=== PATIENT | male | born 1950 | race Caucasian/White ===

== ENCOUNTER → 2017-02-22 | Outpatient (CLI) | payer OTHER ==
[~2017-02-22] MED LIST: ASPI-232 PO; CLOP1TAB15 PO; DULO60CA44 PO; METO25TA3 PO; NIAC1TAB59 PO; OMEG10002 PO; SIMV40TA2 PO
--- NOTE | 2017-02-22 12:28 | DIAGNOSTIC IMAGING REPORT ---
L-SPINE FLEX/EXT BENDING MIN 6 HISTORY: 66 years-old Male LUMBAGO,LUMBAR POST LAMINSECTOMY SYNDROME chronic low back pain with history of prior surgery COMPARISON: Lumbar spine radiographs 06/07/2014 TECHNIQUE: 5 views of the lumbar spine with flexion and extension. FINDINGS: Prior laminectomy with posterior interbody my and screw fusion at L3-S1. The distal portion of the S1 pedicle screws are in close proximity to the adjacent anterosuperior endplate. Alignment is satisfactory. No change in alignment with flexion or extension. No evidence of hardware complication or loosening on these images. Mild anterior wedging of less than 20% involves the T12 vertebral body. Multilevel endplate spurring, intervertebral disc space narrowing and facet arthrosis. Moderate intervertebral disc space narrowing at L2-L3. IMPRESSION: 1. No acute fracture or subluxation. 2. Prior laminectomy with posterior interbody my and screw fusion at L3-S1. No evidence of hardware complication or change in alignment with flexion or extension. The above report was generated using voice recognition software. It may contain grammatical, syntax or spelling errors. Electronically signed by: Abiodun Navas M.D. 02/22/2017 12:27 PM Dictated Date/Time: 02/22/2017 12:24 PM
--- NOTE | 2017-02-22 12:34 | DIAGNOSTIC IMAGING REPORT ---
L HIP UNILATERAL 2 VIEWS CLINICAL HISTORY: Persistent left hip pain. COMPARISON: None FINDINGS: Alignment of left hip is anatomic. There is no fracture or osseous lesion. There is no evidence for avascular necrosis. Lumbar spine fusion hardware is partially imaged. Left hip joint space is only minimally narrowed. There is moderate osteophytosis. IMPRESSION: 1. No acute fracture. 2. Moderate osteophytosis of the left hip with minimal joint space narrowing. Electronically signed by: Manuel Abreu M.D. 02/22/2017 12:33 PM Dictated Date/Time: 02/22/2017 12:24 PM
== END | disposition home or self-care (01) ==
LOC: C.RADBC 11:58
PROVIDERS: ATTEND Physician Assistant
DX: M54.5 Low back pain (principal); M96.1 Postlaminectomy syndrome, not elsewhere classified; M25.552 Pain in left hip; M25.752 Osteophyte, left hip; Z98.890 Other specified postprocedural states

== ENCOUNTER 2019-02-25 08:29 | Inpatient (IN) ==
--- NOTE | 2019-02-10 15:33 | PAT Medication Instructions ---
Medication Instructions Date of Service February 10, 2019 Home Medications Super Beta Prostate 1 tab PO BID cholecalciferol (vitamin D3) 1,000 unit PO QAM clopidogrel [Plavix] 75 mg PO BID duloxetine 60 mg PO BID ibuprofen 200 mg PO BID iron 28 mg PO QAM methylprednisolone 4 mg PO QAM metoprolol tartrate 25 mg PO BID omega 8-zis-xcr-fish oil [Fish Oil] 1 cap PO QPM pregabalin 100 mg PO QAM saw palmetto 450 mg PO QPM simvastatin 40 mg PO HS tramadol 50 mg PO TID vitamin B complex 1 cap PO QAM ASK your surgeon for instructions ibuprofen 200 mg PO BID ASK your prescriber and surgeon clopidogrel [Plavix] 75 mg PO BID STOP taking 2 weeks before surgery Super Beta Prostate 1 tab PO BID omega 9-lut-srg-fish oil [Fish Oil] 1 cap PO QPM saw palmetto 450 mg PO QPM DO NOT take the morning of surgery cholecalciferol (vitamin D3) 1,000 unit PO QAM iron 28 mg PO QAM vitamin B complex 1 cap PO QAM Take morning of surgery With a small sip of water, OTHERWISE NOTHING TO EAT OR DRINK AFTER MIDNIGHT: duloxetine 60 mg PO BID methylprednisolone 4 mg PO QAM metoprolol tartrate 25 mg PO BID pregabalin 100 mg PO QAM tramadol 50 mg PO TID (if needed, may be taken up to four hours before surgery) Take evening before surgery duloxetine 60 mg PO BID metoprolol tartrate 25 mg PO BID saw palmetto 450 mg PO QPM simvastatin 40 mg PO HS tramadol 50 mg PO TID Other Notes If you have any questions please call us at [phone] or [phone] or [phone] or [phone]
--- NOTE | 2019-02-11 12:14 | Anesthesiology Consultation ---
Date of Service February 11, 2019 Assessment & Plan (1) Encounter for pre-operative examination: 08/16/17 lumbar fusion = MAC #3, ETT 8.0, GV I. "Atraumatic, easy." Cardiology clearance 02/13/2019: "The patient is at low risk perioperatively for planned procedure." Chart Review Chart Review: Acceptable Risk for Surgery and Patient seen in Pre Admission Testing Teaching & Discussion Instructed NPO after midnight before surgery, except medications with 15 cc of water. Medication instructions provided according to the PAT guidelines. Plavix instructions per surgeon and prescriber. History Surgery Operation Date: 02/25/19 07:45 Proposed Procedures p L1-L2 Decompression T11-L1 Fusion, L3 Hardware Removal, Spinal Cord Monitoring - Sedrick Bryan, Height/Weight Height: 5 ft 8 in Weight: 94.4 kg Allergies Allergy/AdvReac Type Severity Reaction Status Date / Time adhesive Allergy Unknown REDNESS, Verified 02/04/19 08:36 CHAKRABORTY SKIN latex Allergy Unknown CHAKRABORTY SKIN Unverified 02/04/19 08:36 Medications Home Medications Medication Instructions Recorded Confirmed Last Taken Super Beta Prostate 1 tab PO BID 02/04/19 02/04/19 Unknown cholecalciferol (vitamin D3) 1,000 unit PO QAM 02/04/19 02/04/19 Unknown [Vitamin D3] clopidogrel [Plavix] 75 mg PO BID 02/04/19 02/04/19 02/04/19 duloxetine 60 mg PO BID 02/04/19 02/04/19 02/04/19 ibuprofen 200 mg PO BID 02/04/19 02/04/19 Unknown iron 28 mg PO QAM 02/04/19 02/04/19 Unknown methylprednisolone 4 mg PO QAM 02/04/19 02/04/19 02/04/19 metoprolol tartrate 25 mg PO BID 02/04/19 02/04/19 02/04/19 omega 8-qrh-kzt-fish oil [Fish Oil] 1 cap PO QPM 02/04/19 02/04/19 02/03/19 pregabalin 100 mg PO QAM 02/04/19 02/04/19 02/04/19 saw palmetto 450 mg PO QPM 02/04/19 02/04/19 Unknown simvastatin 40 mg PO HS 02/04/19 02/04/19 02/03/19 tramadol 50 mg PO TID 02/04/19 02/04/19 02/04/19 vitamin B complex 1 cap PO QAM 02/04/19 02/04/19 Unknown Past Medical History Medical History CAD (coronary artery disease) [place] 2007, s/p PTCA x2 History of hemangioma OF BRAIN History of [place] (myocardial infarction) 2007 ...CATH / STENTS X2 HTN (hypertension) Sleep apnea CPAP Spinal stenosis Exercise / Class Metabolic Activity II 4-5 Yardwork/Stairs/Walk up hill (Denies CP or SOB with 1 FOS, does many times daily.) Past Surgical History Surgical History History of brain surgery For hemangioma, 2002. History of cardiac cath [place]...2008, STENTS X2 - [facility] History of colonoscopy History of lumbar fusion X2 History of neck surgery 2 FUSIONS, MILD LIMITATION WITH ROM History of shoulder surgery R&L Past Anesthesia History No Hx of Anesthesia Complications and No Family Hx of Anesthesia Complications History of PONV No Hx of PONV and No Hx of Motion Sickness Social History Smoking Status: Never smoker Do You Dip or Chew Tobacco: Yes (3 CANS A WEEK AVERAGE - ADVISED NPO) Hx Alcohol Use: No Hx Substance Use: No Review of Systems Pt denies any recent chest pain, shortness of breath, palpitations, cough, fever or URI. Physical Exam Vital Signs BP: 130/82 P: 67bpm SPO2: 98% RA T: 99.3 F R: 16 ENMT Mouth: + small oral opening; no dental restorations, no chipped teeth and no loose teeth Thyromental Distance: > or= 3.5 Finger Breadths (4) Mallampati Class: II Neck normal visual inspection and + limited neck extension Respiratory normal respiratory effort Auscultation: lungs clear to auscultation bilaterally Cardiovascular Rate/Rhythm: regular rate and regular rhythm Heart Sounds: no murmur Vessels: no carotid bruit Extremities: no edema Testing Laboratory Results 02/11/19 12:26 02/11/19 12:26 PT 10.3 Seconds (9.0-12.0) 02/11/19 12:26 INR 1.0 (0.9-1.1) 02/11/19 12:26 APTT 23.4 Seconds (21.0-31.0) 02/11/19 12:26 Urine Color Dark Yellow 02/11/19 Unknown Urine Appearance Clear (Clear) 02/11/19 Unknown Urine pH 5.5 (4.5-7.5) 02/11/19 Unknown Ur Specific [place] 1.016 (1.000-1.030) 02/11/19 Unknown Urine Protein Negative (Negative) 02/11/19 Unknown Urine Glucose (UA) Negative (Negative) 02/11/19 Unknown Urine Ketones Negative (Negative) 02/11/19 Unknown Urine Nitrite Negative (Negative) 02/11/19 Unknown Ur Leukocyte Esterase Negative (Negative) 02/11/19 Unknown Blood Type A Positive 02/11/19 12: Antibody Screen NEGATIVE 02/11/19 12: Electrocardiogram Date: 02/11/19 Findings: + NSR @ (61bpm) Chest X-Ray Date: 02/11/19 Findings: + NAD Mild left hemidiaphragmatic elevation with left basilar atelectasis. Echocardiogram Date: 01/01/19 EF: 55% Technically limited due to poor acoustic window. Mild LVH with normal overall LV systolic function. Normal RV size, functins and thickness. R and L atrium top normal size. Aortic root grossly normal. Mild thickening of the mitral valve with mild mitral regurgitation. Mild tricuspid regurg. Aortic valve is poorly visualized, but no significant stenosis or regurg. No significant thrombi, masses, shunts, and pericardial effusin. Stress Test Date: 08/16/17 Type: exercise Positive for ischemia.Partially fixed, partially reversible defect involving the inferior and inferolateral page of the LV, extending from the base f the heart down to the apex. The defect is medium in size and moderate intensity, and it is consistent with prior infarction in the CA distribution with mild to moderate [place]-infarct ischemia. Cardiac Catheterization Date: 08/16/17 Mild non-obstructive CAD. Tubular 15% ostial lesion in RCA. Tubular 20% proximal lesion in Cx. Tubular 30% proximal lesion in LAD. LVEF 55-60%
--- NOTE | 2019-02-11 13:03 | XRay Report ---
XR chest Pre-admission PA/Lat HISTORY: 68 years-old Male pat preoperative exam. No acute chest complaints COMPARISON: Chest radiographs 07/10/2017 TECHNIQUE: PA and lateral views of the chest FINDINGS: Cardiomediastinal and hilar silhouettes are within normal limits. Calcified plaque of the thoracic ao rtic arch. Mild left hemidiaphragmatic elevation with left basilar atelectasis. No pneumothorax, pleu ral effusion or overt pulmonary edema. Degenerative changes of the shoulders and spine. Partially elda ged fusion hardware of the lumbar spine. Fusion hardware of the lower cervical spine. IMPRESSION: No acute process. The above report was generated using voice recognition software. It may contain grammatical, syntax o r spelling errors. Electronically signed by: Abiodun Navas M.D. 02/11/2019 1:02 PM
[2019-02-11 13:14] LABS: Basophils # (auto) 0.07 K/uL (0-0.2); Basophils % (auto) 0.8 %; Eosinophils # (auto) 0.24 K/uL (0-0.5); Eosinophils % (auto) 2.6 %; Hemoglobin 13.2 g/dL (14.0-18.0); Immature Granulocytes # (auto) 0.02 K/uL (0.00-0.02); Immature Granulocytes % (auto) 0.2 %; Lymphocytes # (auto) 1.69 K/uL (1.2-3.4); Lymphocytes % (auto) 18.7 %; Mean Corpuscular Hemoglobin 33.4 pg (25-34); Mean Corpuscular Volume 101.3 fL (80-100); Mean Platelet Volume 10.6 fL (7.4-10.4); Monocytes % (auto) 8.8 %; Neutrophils # (auto) 6.24 K/uL (1.4-6.5); Neutrophils % (auto) 68.9 %; Platelet Count 249 K/uL (130-400); RDW Coefficient of Variation 14.3 % (11.5-14.5); RDW Standard Deviation 53.3 fL (36.4-46.3); Red Blood Count 3.95 M/uL (4.7-6.1); White Blood Count 9.06 K/uL (4.8-10.8)
[2019-02-11 13:19] LABS: Appearance Urine Clear (Clear); Bilirubin Urine Negative (Negative); Blood Urine Negative (Negative); Color Urine Dark Yellow; Glucose Urine UA Negative (Negative); Ketones Urine Negative (Negative); Leukocyte Esterase Urine Negative (Negative); Nitrite Urine Negative (Negative); Protein Urine Negative (Negative); Specific Gravity Urine 1.016 (1.000-1.030); Urobilinogen Urine Negative (Negative); pH Urine 5.5 (4.5-7.5)
[2019-02-11 13:26] LABS: Calcium 9.6 mg/dl (8.5-10.1); Creatinine Clr Calc Pharmacy 82.6 ml/min; Est GFR (African American) 92.7; Potassium 4.5 mmol/L (3.5-5.1)
[2019-02-11 13:30] LABS: Partial Thromboplastin Ratio 0.9; Partial Thromboplastin Time 23.4 Seconds (21.0-31.0); Prothrombin Time 10.3 Seconds (9.0-12.0)
[~2019-02-25 08:29] MED LIST changes: +ACETAMINOPHEN 500 MG TAB PO SCH; -ASPI-232 PO; +CEFAZOLIN 2000MG 2,000 MG/15 ML SYR IV SCH; -CLOP1TAB15 PO; +CeleBREX 200 MG CAP PO SCH; -DULO60CA44 PO; +GABAPENTIN 300 MG CAP PO SCH; +LR 15ML/HR IV SCH; -METO25TA3 PO; -NIAC1TAB59 PO; -OMEG10002 PO; -SIMV40TA2 PO
[2019-02-25] MEDS ORDERED: ROCURONIUM BROMIDE 10 MG/ML 5 ML VIAL ONE (08:37)
[2019-02-25] MEDS ORDERED: DEXAMETHASONE SOD INJ 4 MG/ML VIAL ONE (08:37)
[2019-02-25] MEDS ORDERED: MIDAZOLAM HCL 1 MG/ML 2ML VIAL ONE (08:37)
[2019-02-25] MEDS ORDERED: NEOSTIGMINE METHYLSULFATE 1 MG/ML 10ML VIAL ONE (08:37)
[2019-02-25] MEDS ORDERED: LIDOCAINE HCL 2% 2 ML VIAL/AMP(20MG/ML) INFIL ONE (08:37)
[2019-02-25] MEDS ORDERED: GLYCOPYRROLATE 0.2 MG/ML VIAL ONE (08:37)
[2019-02-25] MEDS ORDERED: ONDANSETRON INJ 2 MG/ML 2 ML VIAL ONE (08:37)
[2019-02-25] MEDS ORDERED: fentaNYL citrate 100 MCG/2 ML VIAL ONE (08:37)
[2019-02-25] MEDS ORDERED: PROPOFOL IV EMULSION 10 MG/ML 20 ML VIAL IV ONE (08:37)
--- NOTE | 2019-02-25 09:13 | History & Physical Bridge Note ---
Date of Service February 25, 2019 History & Physical Bridge Note I have examined the patient, reviewed the History & Physical and in the interval since the performance of the History & Physical I have noted the following changes of clinical significance: no changes noted
--- NOTE | 2019-02-25 09:14 | History & Physical Report ---
Date of Service February 25, 2019 Assessment & Plan (1) Lumbar stenosis with neurogenic claudication: Decompression L1-L2 fusion T11-L1 hardware removal L3 Present on Admission?: Yes History of Present Illness Chief Complaint: Back and bilateral leg pain Primary Care Provider: Marc Vaz DO This is a 68-year-old male who presents with chronic persistent back and bilateral leg pain. After failing extensive course of nonoperative care is here for surgical invention. Allergies Allergy/AdvReac Type Severity Reaction Status Date / Time adhesive Allergy Unknown REDNESS, Verified 02/25/19 08:53 CHAKRABORTY SKIN latex Allergy Unknown CHAKRABORTY SKIN Verified 02/25/19 08:53 Home Medications Home Medications Medication Instructions Recorded Confirmed Type Super Beta Prostate 1 tab PO BID 02/04/19 02/25/19 History cholecalciferol (vitamin D3) 1,000 unit PO QAM 02/04/19 02/25/19 History [Vitamin D3] clopidogrel [Plavix] 75 mg PO DAILY 02/04/19 02/25/19 History duloxetine 60 mg PO BID 02/04/19 02/25/19 History ibuprofen 200 mg PO BID 02/04/19 02/25/19 History iron 28 mg PO QAM 02/04/19 02/25/19 History methylprednisolone 4 mg PO QAM 02/04/19 02/25/19 History metoprolol tartrate 25 mg PO BID 02/04/19 02/25/19 History omega 9-gmw-ytl-fish oil [Fish Oil] 1 cap PO QPM 02/04/19 02/25/19 History pregabalin 50 mg PO QAM 02/04/19 02/25/19 History saw palmetto 450 mg PO QPM 02/04/19 02/25/19 History simvastatin 40 mg PO HS 02/04/19 02/25/19 History tramadol 50 mg PO TID 02/04/19 02/25/19 History vitamin B complex 1 cap PO QAM 02/04/19 02/25/19 History Past Med/Surg History Medical History CAD (coronary artery disease) [place] 2007, s/p PTCA x2 History of hemangioma OF BRAIN History of [place] (myocardial infarction) 2007 ...CATH / STENTS X2 HTN (hypertension) Sleep apnea CPAP Spinal stenosis Surgical History History of brain surgery For hemangioma, 2003. History of cardiac cath [place]...2008, STENTS X2 - [facility] History of colonoscopy History of lumbar fusion X2 History of neck surgery 2 FUSIONS, MILD LIMITATION WITH ROM History of shoulder surgery R&L Social History Preferred Language: Argentine Communication Ability: Effective Configuration Consultant Required: No Beliefs That Will Affect Care: None Current Living Situation: Spouse Other Information That Helps Us Care for You: No Feels Safe at Home: Yes Smoking Status: Never smoker Do You Dip or Chew Tobacco: Yes (3 CANS A WEEK AVERAGE - ADVISED NPO) ; Hx Alcohol Use: No Hx Substance Use: No Physical Exam Physical Exam: Patient is alert and oriented neurologically intact. Results & Data Vital Signs (Past 12 Hours) Vital Signs Temp Pulse Resp BP Pulse Ox 02/25/19 08:56 36.8 C 61 18 141/92 H 96
[2019-02-25] MEDS ORDERED: ATROPINE SULFATE 0.1 MG/ML 10ML SYR IV PRN (09:19)
[2019-02-25] MEDS ORDERED: HYDROmorphone INJ 2 MG/ML SYR/VIAL IV PRN (09:19)
[2019-02-25] MEDS ORDERED: PROMETHAZINE HCL 12.5 MG in SODIUM CHLORIDE 0.9% 50 ML IV PRN ×2 (09:19→13:18)
[2019-02-25] MEDS ORDERED: ONDANSETRON INJ 2 MG/ML 2 ML VIAL IV PRN ×2 (09:19→13:18)
[2019-02-25] MEDS ORDERED: ePHEDrine sulfate 50 MG/ML AMP IV PRN (09:19)
[2019-02-25] MEDS ORDERED: METOCLOPRAMIDE HCL INJ 5 MG/ML 2 ML VIAL IV PRN ×2 (09:19→13:18)
[2019-02-25] MEDS ORDERED: BACITRACIN INJ 50,000 UNIT VIAL ONE (09:20)
[2019-02-25] MEDS ORDERED: BUPIVACAINE/EPINEPHRINE 0.5% MPF 1:200,000 10 ML VIAL ONE (09:20)
--- NOTE | 2019-02-25 11:40 | Operative Report ---
Post Operative Report Pre & Post Diagnosis Operation Date: 02/25/19 09:35 Pre-Op Diagnosis: Lumbar spinal stenosis with neurogenic claudication Post-Op Diagnosis: Lumbar spinal stenosis with neurogenic claudication I identified the patient and participated in the time-out.: Yes Procedure Operation Date: 02/25/19 09:35 Actual Procedures #1 removal of posterior instrumentation L2-3. #2 exploration of fusion L2-3. #3 lumbar decompression with bilateral medial facetectomies foraminotomies T12- L1 L1-L2. #4 posterior spinal fusion T11-T12 T12-L1 L1-L2. #5 placement posterior segmental instrumentation T11-L3. #6 placement of locally harvested morselized autograft in the posterior lateral gutters per #7 placement infuse collagen sponge combined master graft in the posterior gutters. Surgeon Sedrick Bryan, DO Manager Radio Yola Hernandez Estimated Blood Loss 400 Findings See Below The patient is 5 foot 8 inches tall weighing over 93 kg with a BMI in excess of 31. Patient's body habitus did create increased technical difficulty requiring at least 25% increase in operative time. Specimens 400 Indications This is a 68-year-old male known to me that presents with above-mentioned diagnosis after failing extensive course of nonoperative care is here for surgical intervention. Description of Procedure Patient was met with identified informed consent obtained. Patient was then taken to the operative suite underwent an patient placed in a prone position Tavares table on top of the Vivek frame. All bony prominences well-padded eyes inspected to ensure no external pressure placed upon them. This point the thoracolumbar spine was prepped and draped in normal sterile fashion. Sharp dissection with the assistance of Bovie cautery was then performed down to and exposing the lamina and transverse processes of T11-T12 L1-L2 and instrumentation L2-3 bilaterally. Then proceeded perform a complete laminectomy of L1 partial laminectomy of T12 including bilateral medial facetectomies and foraminotomies addressing severe stenosis. Pedicle screws were then placed in T11-T12 L1-L2-L3 bilaterally with assistance of fluoroscopy and appropriate size my locked into position. The remaining lamina and transverse processes of T11 T12-L1 and L2 burred to subcortical bleeding bone. Infuse collagen sponge master graft local autograft placed in the posterior lateral gutters. 15 round JORGE LUIS drain inserted. The incision was then closed with 1 Vicryl in the fascia 2-0 Vicryl subcutaneously and 4 Monocryl for final skin closure. Steri-Strip sterile dressings placed. Patient will continue PACU stable condition. Please note Yola Hernandez was present at the entire procedure involved the patient positioning complex portions of the surgery and final skin closure. Lastly spinal cord monitoring was utilized that the procedure no changes noted. I attest to the content of the Intraoperative Record and any orders documented therein. Any exceptions are noted below.
--- NOTE | 2019-02-25 12:08 | Fluoroscopy Report ---
FL lumbar spine 2-3V HISTORY: 68 years-old Male L1-L2 DECOMPRESSION WITH T11-L1 FUSION L3 HW REMOVAL chronic low back nellie n COMPARISON: 4 spot radiographs 08/16/2017 TECHNIQUE: 4 spot fluoroscopic images of the lumbar spine were obtained utilizing 27.5 seconds fluoro scopy time FINDINGS: Posterior body and screw fusion hardware noted at what appears to be the T11-L3 levels. The hardware appears intact. Alignment appears satisfactory. Multilevel spondylitic spurring with disc space narro wing. No acute fracture or subluxation identified. IMPRESSION: Fluoroscopic assistance as above. Please see operative report for further details. ACT 112: Negative or not required by law. The above report was generated using voice recognition software. It may contain grammatical, syntax o r spelling errors. Electronically signed by: Abiodun Navas M.D. 02/25/2019 12:06 PM
[2019-02-25] MEDS: fentaNYL citrate 100 MCG/2 ML VIAL IV PRN ×3 (12:24→12:35)
--- NOTE | 2019-02-25 12:54 | Anesthesiology Progress Note ---
Date of Service February 25, 2019 Anesthesia Post Procedure Vital Signs Vital Signs: Temp Pulse Pulse Resp BP Pulse Ox 02/25/19 12:45 64 12 111/65 95 02/25/19 12:35 68 12 110/78 95 02/25/19 12:25 64 15 114/83 100 02/25/19 12:15 68 15 130/92 100 02/25/19 12:06 36 C L 98 H 20 161/101 H 98 02/25/19 08:56 36.8 C 61 18 141/92 H 96 Pain Intensity Back: Pain Intensity: 9 Notes Mental Status: alert / awake / arousable and participated in evaluation Patient Amnestic to Procedure: Yes Nausea / Vomiting: adequately controlled Pain: adequately controlled Airway Patency, RR, SpO2: stable & adequate BP & HR: stable & adequate Hydration State: stable & adequate Anesthetic Complications: no major complications apparent
[2019-02-25] MEDS ORDERED: ACETAMINOPHEN 1,000 MG/100 ML VIAL IV PRN (13:18)
[2019-02-25] MEDS ORDERED: MAGNESIUM HYDROXIDE SUSP 30 ML UDC PO PRN (13:18)
[2019-02-25] MEDS ORDERED: SOD PHOSPHATE/SOD BIPHOSPHATE ENEMA 132 ML BTL PR PRN (13:18)
[2019-02-25] MEDS ORDERED: FAMOTIDINE 20 MG TAB PO PRN (13:18)
[2019-02-25] MEDS ORDERED: ACETAMINOPHEN 500 MG TAB PO PRN (13:18)
[2019-02-25] MEDS ORDERED: DO NOT ADMINISTER FLU VACCINE PRN (13:18)
[2019-02-25] MEDS ORDERED: LORazepam 0.5 MG TAB PO PRN (13:18)
[2019-02-25] MEDS ORDERED: DO NOT ADMINISTER PNEUMOCOCCAL VACCINE PRN (13:18)
[2019-02-25] MEDS ORDERED: ALUMINUM/MAGNESIUM SUSP 30 ML UDC PO PRN (13:18)
[2019-02-25] MEDS ORDERED: LORazepam 0.5 MG/1 ML VIAL IV PRN (13:18)
[2019-02-25] MEDS ORDERED: bisacodyL 10 MG SUPP PR PRN (13:18)
[2019-02-25] MEDS ORDERED: ONDANSETRON 4 MG OD TAB PO PRN (13:18)
[2019-02-25] MEDS ORDERED: HYDROmorphone INJ 1 MG/ML SYRINGE IV PRN (13:18)
[2019-02-25] MEDS ORDERED: NALOXONE HCL 0.4 MG/1 ML VIAL/CARP IV PRN (13:18)
[2019-02-25] MEDS ORDERED: HYDROmorphone INJ 0.5 MG/0.5 ML SYR IV PRN (13:18)
[2019-02-25] MEDS: LACTATED RINGER'S 1,000 ML IV SCH ×2 (13:31→17:47)
[2019-02-25] MEDS: OXYCODONE HCL IR 5 MG TAB (IMMEDIATE RELEASE) PO PRN ×2 (13:31→22:42)
[2019-02-25] MEDS: KETOROLAC TROMETHAMINE 15 MG/ML VIAL IV SCH ×2 (13:46→19:45)
--- NOTE | 2019-02-25 14:55 | Hospitalist Consultation ---
Date of Consultation February 25, 2019 Assessment & Plan (1) Lumbar stenosis with neurogenic claudication: * POD #0 s/p removal of posterior instrumentation L2-3, exploration of fusion L2-3, 3 lumbar decompression with bilateral medial facetectomies foraminotomies T12-L1 L1-L2, 4 posterior spinal fusion T11-T12 T12-L1 L1-L2, and placement of instrumentation T11-L3 * Pre-op h/h 13.2/40.0. EBL 400mL * Monitor CBC * PT/OT/ pain management/bowel regimen/DVT prophylaxis per primary team (2) CAD (coronary atherosclerotic disease): * [place] 2007, stent x2 * had abnormal stress test and subsequent cardiac cath in 2018 with nonobstructive CAD * Pre-op ECHO 01/01/19 with mild LVH, normal LV systolic function, EF 55%. Mild MR, TR, no wma * Continue statin, metoprolol, and recommend restarting Plavix when determined safe by Ortho Spine Surgeon (3) Macrocytosis: * Patient takes iron supplementation for chronic anemia, with pre-op h/h 13.2/40 as above * However, MCV 101.3 on pre-op labs --> patient denies alcohol use * Will obtain folate and B12 levels -- if wnl, r/o underlying myelodysplastic disorder (4) BPH (benign prostatic hyperplasia): * Patient takes saw palmetto as outpatient, but on hold prior to surgery * Will need to monitor for urinary retention once holm removed (5) History of [place] (myocardial infarction): * In 2007-- treated with stent x2 in [place] * Continue statin, metoprolol, and recommend restarting Plavix when determined safe by Ortho Spine Surgeon (6) Anxiety disorder: * Continue home cymbalta 60mg BID (7) History of PTCA: * 2007, As above (8) Hyperlipidemia: * Stable -- last lipid profile in the last six months, no record in our system * Continue home simvastatin 40mg (9) Hypertension: * Bp stable 114/78 * Not on any DAVE/ARB * continue metoprolol tartrate 25mg po bid * Continue to monitor (10) Sleep apnea: * pt did not bring home CPAP, unable to obtain at this time * Ordered for RT to set up our unit while inpatient (11) Hemangioma: * Found incidentally on imaging of neck in 2002 prior to cervical spine fusion in [place] -- surgery at the same * Stable (12) History of lumbar spinal fusion: * As above * h/o spinal surgeries x4, most recent 2018 (13) DVT prophylaxis: * SCDs as per primary team Dispo: from home, PT/OT per primary with likely hospital stay 1-2 nights Thank you for allowing the medicine team to participate in the care of Mr. Mayi house. Medicine will follow along. Supervising Physician Co-Signing Physician Notes PA Supervision Note: I personally saw and examined the patient. I verified all nguyen points and agree with GOYO Prieto with the following exceptions and/or additions: Pt seen post-op, doing well, denies chest pain or SOB, is weaning off O2. No nausea and is eating. Holm in place VSS NAD, AAOx3 Anicteric sclerae RRR no mgr CTAB no wcr Abd +BS soft NT ND Ext no edema or calf tenderness -Holm in place 68 yo male with history as above here for lumbar spine surgery Doing well -restart Plavix when safe from Surgical standpoint -continue metoprolol and watch BPs History of Present Illness Reason for Consultation: Medical Management Requesting Physician: Dr Bryan Attending Physician: Sedrick Bryan, History of Present Illness 68 white male with PMH significant for CAD (Hx [place] s/p stent x2), HTN, Sleep Apnea, BPH, OA, hemangioma, anxiety presented for L1-L2 decompression with T11- L3 fusion, L2-[address] Bryan. Patient evaluated this afternoon with at bedside. States he does not have much pain following procedure with pain medications. Patient had previous back surgery last year, and states patient looks much better today post operatively than he did last year after similar procedure. States his appetite it good. No flatus or BM. Feels generally well. States he does have a history of BPH and takes mak palmetto as an outpatient with great success, although he had held that prior to procedure. Does not take any flomax or proscar. Did not have issues with urinary retention following previous surgeries. Allergies Allergy/AdvReac Type Severity Reaction Status Date / Time adhesive Allergy Unknown REDNESS, Verified 02/25/19 08:53 CHAKRABORTY SKIN latex Allergy Unknown CHAKRABORTY SKIN Verified 02/25/19 08:53 Home Medications Home Medications Medication Instructions Recorded Confirmed Type Super Beta Prostate 1 tab PO BID 02/04/19 02/25/19 History cholecalciferol (vitamin D3) 1,000 unit PO QAM 02/04/19 02/25/19 History [Vitamin D3] clopidogrel [Plavix] 75 mg PO DAILY 02/04/19 02/25/19 History duloxetine 60 mg PO BID 02/04/19 02/25/19 History ibuprofen 200 mg PO BID 02/04/19 02/25/19 History iron 28 mg PO QAM 02/04/19 02/25/19 History methylprednisolone 4 mg PO QAM 02/04/19 02/25/19 History metoprolol tartrate 25 mg PO BID 02/04/19 02/25/19 History omega 5-skw-ooy-fish oil [Fish Oil] 1 cap PO QPM 02/04/19 02/25/19 History pregabalin 50 mg PO QAM 02/04/19 02/25/19 History saw palmetto 450 mg PO QPM 02/04/19 02/25/19 History simvastatin 40 mg PO HS 02/04/19 02/25/19 History tramadol 50 mg PO TID 02/04/19 02/25/19 History vitamin B complex 1 cap PO QAM 02/04/19 02/25/19 History Patient History Medical History (Updated 02/25/19 @ 17:24 by Briseida Prieto PA-C) CAD (coronary artery disease) [place] 2007, s/p PTCA x2 History of hemangioma OF BRAIN History of [place] (myocardial infarction) 2007 ...CATH / STENTS X2 HTN (hypertension) Sleep apnea CPAP Spinal stenosis Surgical History (Updated 02/25/19 @ 17:30 by Briseida Prieto PA-C) History of brain surgery For hemangioma, 2002. History of cardiac cath [place]...2008, STENTS X2 -- [place] History of colonoscopy History of lumbar fusion X2 History of neck surgery 2 FUSIONS, MILD LIMITATION WITH ROM History of shoulder surgery R&L Family History Other Family history non-contributory Social History Preferred Language: Iraqi Communication Ability: Effective Quality Worker Required: No Beliefs That Will Affect Care: None Current Living Situation: Spouse Other Information That Helps Us Care for You: No Feels Safe at Home: Yes Smoking Status: Never smoker Do You Dip or Chew Tobacco: Yes (3 CANS A WEEK AVERAGE - ADVISED NPO) ; Hx Alcohol Use: No Hx Substance Use: No Review of Systems Constitutional: no fever and no chills Eyes: no diplopia and no eye pain Ear, Nose, Mouth, Throat: no ear pain and no dysphagia Respiratory: no cough and no dyspnea Cardiovascular: no chest pain, no palpitations and no edema Gastrointestinal: no abdominal pain, no nausea, no vomiting and no constipation Genitourinary: no dysuria and no hematuria Musculoskeletal: + back pain (prior to surgery) Integumentary: no rash and no lesions Neurologic: + tingling (prior to procedure); no numbness Psychiatric: + anxiety; no depression Endocrine: no fatigue and no cold intolerance Hematologic / Lymphatic: no easy bleeding and no coagulopathy Allergy / Immunological: no cough and no dyspnea Physical Exam Constitutional: WD/WN, vitals as above no acute distress Eyes: PERRL, conjunctivae normal, anicteric sclerae ENMT: external ear and nose normal, oropharynx normal Neck: trachea midline, no thyromegaly Respiratory: normal respiratory effort, lungs clear to auscultation Cardiovascular: RRR, no murmur, no edema Gastrointestinal (Abdomen): normal bowel sounds, soft, nontender, no hepatosplenomegaly Musculoskeletal: Head/Neck/Chest: normocephalic and head atraumatic JORGE LUIS drain to lumbar spine dressing c/d/i NVI 2+ pt, dp pulses bilateral Skin: no rashes, warm and dry Neurologic: deep tendon reflexes 2+ bilaterally, moves all extremities and awake Speech / Cognition: normal speech Psychiatric: A+Ox3, euthymic affect Genitourinary: holm catheter present -- draining clear/yellow urine Results & Data Vital Signs (Past 12 Hours) Vital Signs Temp Pulse Pulse Resp BP Pulse Ox 02/25/19 14:05 70 16 114/78 98 02/25/19 13:30 88 16 100/74 98 02/25/19 13:05 36.8 C 74 15 103/68 97 02/25/19 12:55 36.6 C 69 12 119/82 96 02/25/19 12:45 64 12 111/65 95 02/25/19 12:35 68 12 110/78 95 02/25/19 12:25 64 15 114/83 100 02/25/19 12:15 68 15 130/92 100 02/25/19 12:06 36 C L 98 H 20 161/101 H 98 02/25/19 08:56 36.8 C 61 18 141/92 H 96 Laboratory Results 02/25/19 Range/Units 08:50 Blood Type A Positive Antibody Screen NEGATIVE Crossmatch See Detail PG Care Time/CCT Total # of Minutes Spent Total Time Spent with Patient: Total time spent is greater than 50% in coordination of care (as documented) at patient's floor/unit and/or counseling patient:
[2019-02-25] MEDS: CEFAZOLIN 2000MG 2,000 MG/15 ML SYR IV SCH (18:49)
[2019-02-25] MEDS: SIMVASTATIN 40 MG TAB PO SCH (19:51)
[2019-02-25] MEDS: DOCUSATE SODIUM/SENNA 50/8.6MG TAB PO SCH (19:51)
[2019-02-25] MEDS: DULOXETINE HCL 60 MG CAP PO SCH (19:52)
[2019-02-25] MEDS: METOPROLOL TARTRATE 25 MG TAB PO SCH (19:52)
[2019-02-25] MEDS ORDERED: SUPER BETA PROSTATE PO SCH (21:00)
[2019-02-25] MEDS ORDERED: SAW PALMETTO 450 MG PO SCH (21:00)
[2019-02-26] MEDS: LACTATED RINGER'S 1,000 ML IV SCH ×2 (00:04→06:04)
[2019-02-26] MEDS: KETOROLAC TROMETHAMINE 15 MG/ML VIAL IV SCH ×2 (02:04→08:01)
[2019-02-26] MEDS: CEFAZOLIN 2000MG 2,000 MG/15 ML SYR IV SCH (02:04)
[2019-02-26] MEDS: POLYETHYLENE (MIRALAX) 17 GM PACK PO SCH ×4 (06:04→23:57)
[2019-02-26 06:35] LABS: Basophils # (auto) 0.01 K/uL (0-0.2); Basophils % (auto) 0.1 %; Eosinophils # (auto) 0.03 K/uL (0-0.5); Eosinophils % (auto) 0.2 %; Hematocrit (blood only) 29.6 % (42-52); Hemoglobin 10.1 g/dL (14.0-18.0); Immature Granulocytes # (auto) 0.05 K/uL (0.00-0.02); Immature Granulocytes % (auto) 0.4 %; Lymphocytes # (auto) 1.69 K/uL (1.2-3.4); Lymphocytes % (auto) 13.4 %; Mean Corpuscular Hemoglobin 34.4 pg (25-34); Mean Corpuscular Hgb Conc 34.1 g/dL (32-36); Mean Corpuscular Volume 100.7 fL (80-100); Mean Platelet Volume 10.3 fL (7.4-10.4); Monocytes # (auto) 1.22 K/uL (0.11-0.59); Monocytes % (auto) 9.7 %; Neutrophils # (auto) 9.58 K/uL (1.4-6.5); Neutrophils % (auto) 76.2 %; Platelet Count 205 K/uL (130-400); RDW Coefficient of Variation 14.8 % (11.5-14.5); RDW Standard Deviation 53.6 fL (36.4-46.3); Red Blood Count 2.94 M/uL (4.7-6.1); White Blood Count 12.58 K/uL (4.8-10.8)
[2019-02-26 07:04] LABS: Calcium 8.2 mg/dl (8.5-10.1); Creatinine Clr Calc Pharmacy 92.8 ml/min; Est GFR (African American) 104.2; Est GFR (Non-African American) 89.9; Potassium 4.4 mmol/L (3.5-5.1)
[2019-02-26 07:57] LABS: Folate (Folic Acid) 16.31 ng/ml (>5.38)
[2019-02-26] MEDS: CHOLECALCIFEROL 1,000 UNITS TAB PO SCH (07:57)
[2019-02-26] MEDS: methylPREDNISolone 4 MG TAB PO SCH (07:57)
[2019-02-26] MEDS: VITAMIN B COMPLEX TAB PO SCH (07:57)
[2019-02-26] MEDS: METOPROLOL TARTRATE 25 MG TAB PO SCH ×2 (07:58→20:29)
[2019-02-26] MEDS: FERROUS SULFATE 325 MG TAB PO SCH (07:58)
[2019-02-26] MEDS: DULOXETINE HCL 60 MG CAP PO SCH ×2 (07:58→20:29)
[2019-02-26] MEDS: PREGABALIN 50 MG CAP PO SCH (08:01)
--- NOTE | 2019-02-26 08:53 | Orthopedic Progress Note ---
Date of Service February 26, 2019 Assessment & Plan (1) Lumbar stenosis with neurogenic claudication: Patient will start physical therapy today. Maintain JORGE LUIS drain and dressing. DVT prophylaxis in the form teds and SCDs. Continue with pain control. Anticipate discharge home roughly 48 hours from now. Supervising Physician Co-Signing Physician Notes Dr. Sedrick Bryan Subjective Patient is postoperative day 1 thoracolumbar decompression fusion. He is doing well. He is up eating breakfast. No issues overnight. Denies regular leg pain. Pain is controlled otherwise. JORGE LUIS drain output is 200+ cc in the past shift. H&H are 10.1 and 29.6 respectively. Review of Systems Review of Systems: All systems reviewed & are unremarkable except as noted in HPI & below Physical Exam Physical Exam: Sitting in chair. Is alert and oriented x3. Neurovascular intact bilateral lower extremities. Strength is intact bilateral lower extremities. Lumbar dressing is clean dry and intact. Calves are soft nontender bilaterally. Results & Data Vital Signs (Past 12 Hours) Vital Signs Temp Pulse Resp BP Pulse Ox 02/26/19 07:58 36.6 C 73 16 131/77 95 02/26/19 03:52 36.4 C L 80 18 120/75 97 02/25/19 23:15 36.4 C L 70 17 120/73 96
--- NOTE | 2019-02-26 11:49 | Hospitalist Progress Note ---
Date of Service February 26, 2019 Assessment & Plan (1) Lumbar stenosis with neurogenic claudication: * POD #1 s/p removal of posterior instrumentation L2-3, exploration of fusion L2-3, 3 lumbar decompression with bilateral medial facetectomies foraminotomies T12-L1 L1-L2, 4 posterior spinal fusion T11-T12 T12-L1 L1-L2, and placement of instrumentation T11-L3 * Pre-op h/h 13.2/40.0. EBL 400mL. Drain output 580cc. Continue to monitor * H/H 10.1/29.6 -- likely acute blood loss and dilutional secondary to IVF * PT/OT/ pain management/bowel regimen/DVT prophylaxis per primary team (2) Acute blood loss anemia: * As above (3) CAD (coronary atherosclerotic disease): * [place] 2007, stent x2 * had abnormal stress test and subsequent cardiac cath in 2018 with nonobstructive CAD * Pre-op ECHO 01/01/19 with mild LVH, normal LV systolic function, EF 55%. Mild MR, TR, no wma * Continue statin, metoprolol, and recommend restarting Plavix when determined safe by Ortho Spine Surgeon (4) Macrocytosis: * Patient takes iron supplementation for chronic anemia, with pre-op h/h 13.2/40 as above * However, MCV 101.3 on pre-op labs --> patient denies heavy alcohol use -- occasional drink at the holidays, 1-2x/year * B12 elevated, folate wnl, TSH 0.575 -- rec follow up with PCP/hematology as outpatient (5) BPH (benign prostatic hyperplasia): * Patient takes saw palmcristopher as outpatient, but on hold prior to surgery * Now that holm removed, will need to monitor for urinary retention (6) History of [place] (myocardial infarction): * In 2007-- treated with stent x2 in [place] * Continue statin, metoprolol, and recommend restarting Plavix when determined safe by Ortho Spine Surgeon (7) Anxiety disorder: * Continue home cymbalta 60mg BID (8) History of PTCA: * 2007, As above (9) Hyperlipidemia: * Stable -- last lipid profile in the last six months, no record in our system * Continue home simvastatin 40mg (10) Hypertension: * Bp stable 115/75 * Not on any DAVE/ARB * continue metoprolol tartrate 25mg po bid * Continue to monitor (11) Sleep apnea: * pt did not bring home CPAP, unable to obtain at this time * Ordered for RT to set up our unit while inpatient (12) Hemangioma: * Found incidentally on imaging of neck in 2002 prior to cervical spine fusion in [place] -- surgery at the same * Stable (13) History of lumbar spinal fusion: * As above * h/o spinal surgeries x4, most recent 2018 (14) DVT prophylaxis: * SCDs as per primary team Dispo: from home, PT/OT. Poss discharge in next 48 hours per primary team Thank you for allowing the medicine team to participate in the care of Mr. Sarmiento. Medicine will follow along. Supervising Physician Co-Signing Physician Notes PA Supervision Note: I did not personally see or examine the patient today, but I verified all nguyen points of GOYO Prieto's assessment and plan with the following exceptions/additions: None Subjective Patient doing well. Lower back discomfort, tolerable with pain medications. Patient states he worked with physical therapy this morning and was able to ambulate without too much difficulty. Denies dysphagia or sore throat today. Tolerating diet without difficulty. Denies numbness/paresthesias. Passing gas but no BM yet. States Holm removed approximately 11am, thirty minutes to my arrival, but has not urinated as of yet. Patient does not feel that he has to urinate at this time. Review of Systems Review of Systems: All systems reviewed & are unremarkable except as noted in HPI & below Constitutional: no fever and no chills Eyes: no diplopia and no eye pain Ear, Nose, Mouth, Throat: no sore throat and no dysphagia Respiratory: no cough and no dyspnea Cardiovascular: no chest pain and no palpitations Gastrointestinal: no abdominal pain, no nausea and no vomiting Integumentary: no rash and no lesions Neurologic: no numbness and no paresthesia Physical Exam Constitutional: WD/WN, vitals as above no acute distress Eyes: PERRL, conjunctivae normal, anicteric sclerae Neck: trachea midline, no thyromegaly Respiratory: normal respiratory effort, lungs clear to auscultation Cardiovascular: RRR, no murmur, no edema Gastrointestinal (Abdomen): normal bowel sounds, soft, nontender, no hepatosplenomegaly Musculoskeletal: Head/Neck/Chest: normocephalic and head atraumatic Skin: no rashes, warm and dry JORGE LUIS drain in place with sanguinous drainage. Site c/d/i Neurologic: deep tendon reflexes 2+ bilaterally, moves all extremities and awake Speech / Cognition: normal speech Psychiatric: A+Ox3, euthymic affect Results & Data Vital Signs (Past 12 Hours) Vital Signs Temp Pulse Resp BP Pulse Ox 02/26/19 11:43 36.6 C 73 16 115/75 95 02/26/19 07:58 36.6 C 73 16 131/77 95 02/26/19 03:52 36.4 C L 80 18 120/75 97 Laboratory Results 02/26/19 02/26/19 02/26/19 Range/Units 05:44 05:44 05:44 WBC (4.8-10.8) K/uL RBC (4.7-6.1) M/uL Hgb (14.0-18.0) g/dL Hct (42-52) % MCV (80-100) fL MCH (25-34) pg MCHC (32-36) g/dL RDW Std Deviation (36.4-46.3) fL RDW Coeff of Alexandra (11.5-14.5) % Plt Count (130-400) K/uL MPV (7.4-10.4) fL Immature Gran % (Auto) % Neut % (Auto) % Lymph % (Auto) % Frio % (Auto) % Eos % (Auto) % Baso % (Auto) % Immature Gran # (Auto) (0.00-0.02) K/uL Neut # (Auto) (1.4-6.5) K/uL Lymph # (Auto) (1.2-3.4) K/uL Frio # (Auto) (0.11-0.59) K/uL Eos # (Auto) (0-0.5) K/uL Baso # (Auto) (0-0.2) K/uL Sodium 140 (136-145) mmol/L Potassium 4.4 (3.5-5.1) mmol/L Chloride 109 H (98-107) mmol/L Carbon Dioxide 32 (21-32) mmol/L Anion Gap -1.0 L (3-11) BUN 11 (7-18) mg/dl Creatinine 0.87 (0.6-1.4) mg/dl Est Cr Clr Drug Dosing 92.8 ml/min Est GFR ( Amer) 104.2 Est GFR (Non-Af Amer) 89.9 BUN/Creatinine Ratio 13.0 (10-20) Glucose 107 H (70-99) mg/dl Calcium 8.2 L (8.5-10.1) mg/dl Vitamin B12 1079 H (211-911) pg/ml Folate 16.31 (>5.38) ng/ml TSH 0.575 (0.300-4.500) uIu/ml 02/26/19 Range/Units 05:44 WBC 12.58 H (4.8-10.8) K/uL RBC 2.94 L (4.7-6.1) M/uL Hgb 10.1 L (14.0-18.0) g/dL Hct 29.6 L (42-52) % MCV 100.7 H (80-100) fL MCH 34.4 H (25-34) pg MCHC 34.1 (32-36) g/dL RDW Std Deviation 53.6 H (36.4-46.3) fL RDW Coeff of Alexandra 14.8 H (11.5-14.5) % Plt Count 205 (130-400) K/uL MPV 10.3 (7.4-10.4) fL Immature Gran % (Auto) 0.4 % Neut % (Auto) 76.2 % Lymph % (Auto) 13.4 % Frio % (Auto) 9.7 % Eos % (Auto) 0.2 % Baso % (Auto) 0.1 % Immature Gran # (Auto) 0.05 H (0.00-0.02) K/uL Neut # (Auto) 9.58 H (1.4-6.5) K/uL Lymph # (Auto) 1.69 (1.2-3.4) K/uL Frio # (Auto) 1.22 H (0.11-0.59) K/uL Eos # (Auto) 0.03 (0-0.5) K/uL Baso # (Auto) 0.01 (0-0.2) K/uL Sodium (136-145) mmol/L Potassium (3.5-5.1) mmol/L Chloride (98-107) mmol/L Carbon Dioxide (21-32) mmol/L Anion Gap (3-11) BUN (7-18) mg/dl Creatinine (0.6-1.4) mg/dl Est Cr Clr Drug Dosing ml/min Est GFR ( Amer) Est GFR (Non-Af Amer) BUN/Creatinine Ratio (10-20) Glucose (70-99) mg/dl Calcium (8.5-10.1) mg/dl Vitamin B12 (211-911) pg/ml Folate (>5.38) ng/ml TSH (0.300-4.500) uIu/ml PG Care Time/CCT Total # of Minutes Spent Total Time Spent with Patient: Total time spent is greater than 50% in coordination of care (as documented) at patient's floor/unit and/or counseling patient:
[2019-02-26] MEDS: OXYCODONE HCL IR 5 MG TAB (IMMEDIATE RELEASE) PO PRN ×2 (17:39→23:59)
[2019-02-26] MEDS: DOCUSATE SODIUM/SENNA 50/8.6MG TAB PO SCH (20:29)
[2019-02-26] MEDS: SIMVASTATIN 40 MG TAB PO SCH (20:30)
[2019-02-27] MEDS: POLYETHYLENE (MIRALAX) 17 GM PACK PO SCH ×3 (06:30→17:46)
[2019-02-27] MEDS: OXYCODONE HCL IR 5 MG TAB (IMMEDIATE RELEASE) PO PRN ×2 (06:37→11:07)
[2019-02-27 07:10] LABS: Hematocrit (blood only) 32.4 % (42-52); Hemoglobin 10.9 g/dL (14.0-18.0); Mean Corpuscular Hemoglobin 34.2 pg (25-34); Mean Corpuscular Hgb Conc 33.6 g/dL (32-36); Mean Corpuscular Volume 101.6 fL (80-100); Mean Platelet Volume 10.1 fL (7.4-10.4); Nucleated RBC # (auto) 0.03 K/uL (0-0); Nucleated RBC % (auto) 0.2 %; Platelet Count 226 K/uL (130-400); RDW Coefficient of Variation 14.7 % (11.5-14.5); RDW Standard Deviation 53.9 fL (36.4-46.3); Red Blood Count 3.19 M/uL (4.7-6.1); White Blood Count 13.27 K/uL (4.8-10.8)
[2019-02-27 07:44] LABS: BUN Creatinine Ratio 14.5 (10-20); Calcium 8.6 mg/dl (8.5-10.1); Creatinine Clr Calc Pharmacy 88.7 ml/min; Est GFR (African American) 101.4; Est GFR (Non-African American) 87.5; Potassium 3.7 mmol/L (3.5-5.1)
[2019-02-27] MEDS: VITAMIN B COMPLEX TAB PO SCH (07:59)
[2019-02-27] MEDS: PREGABALIN 50 MG CAP PO SCH (07:59)
[2019-02-27] MEDS: TRAMADOL HCL 50 MG TABLET PO PRN ×3 (07:59→21:53)
[2019-02-27] MEDS: CHOLECALCIFEROL 1,000 UNITS TAB PO SCH (07:59)
[2019-02-27] MEDS: methylPREDNISolone 4 MG TAB PO SCH (08:00)
[2019-02-27] MEDS: DULOXETINE HCL 60 MG CAP PO SCH ×2 (08:00→21:53)
[2019-02-27] MEDS: METOPROLOL TARTRATE 25 MG TAB PO SCH ×2 (08:00→21:53)
[2019-02-27] MEDS: FERROUS SULFATE 325 MG TAB PO SCH (08:00)
--- NOTE | 2019-02-27 11:00 | Orthopedic Progress Note ---
Date of Service February 27, 2019 Assessment & Plan (1) Neurogenic claudication due to lumbar spinal stenosis: At this time continue physical therapy advance his bowel regiment monitor his JORGE LUIS output and hopefully discharge home tomorrow. Present on Admission?: Yes Subjective Patient complaining mostly of back pain today. He feels his leg symptoms are improved. Physical Exam Physical Exam: Patient is in the chair at the bedside. Is good strength testing. Results & Data Vital Signs (Past 12 Hours) Vital Signs Temp Pulse Resp BP BP Pulse Ox 02/27/19 06:33 36.7 C 89 18 125/71 96 02/26/19 23:20 37.4 C 82 17 126/77 93
--- NOTE | 2019-02-27 17:38 | Hospitalist Progress Note ---
Date of Service February 27, 2019 Assessment & Plan (1) Lumbar stenosis with neurogenic claudication: * POD #2 s/p removal of posterior instrumentation L2-3, exploration of fusion L2-3, 3 lumbar decompression with bilateral medial facetectomies foraminotomies T12-L1 L1-L2, 4 posterior spinal fusion T11-T12 T12-L1 L1-L2, and placement of instrumentation T11-L3 * Pre-op h/h 13.2/40.0. EBL 400mL. Drain output total 920mL so far. Continue to monitor * H/H improved to 10.9/32.4 * PT/OT/ pain management/bowel regimen/DVT prophylaxis per primary team * Monitor (2) Acute blood loss anemia: * As above -- likely secondary to surgery/IVF (3) CAD (coronary atherosclerotic disease): * [place] 2007, stent x2 * had abnormal stress test and subsequent cardiac cath in 2018 with nonobstructive CAD * Pre-op ECHO 01/01/19 with mild LVH, normal LV systolic function, EF 55%. Mild MR, TR, no wma * Continue statin, metoprolol, and recommend restarting Plavix when determined safe by Ortho Spine Surgeon (4) Macrocytosis: * Patient takes iron supplementation for chronic anemia, with pre-op h/h 13.2/40 as above * However, MCV 101.3 on pre-op labs --> patient denies heavy alcohol use -- occasional drink at the holidays, 1-2x/year * B12 elevated, folate wnl, TSH 0.575 -- rec follow up with PCP/hematology as outpatient (5) BPH (benign prostatic hyperplasia): * Patient takes saw palmetto as outpatient, but on hold prior to surgery * No s/sx of urinary retention. Good UO * Monitor (6) History of [place] (myocardial infarction): * In 2007-- treated with stent x2 in [place] * Continue statin, metoprolol, and recommend restarting Plavix when determined safe by Ortho Spine Surgeon (7) Anxiety disorder: * Continue home cymbalta 60mg BID (8) History of PTCA: * 2007, As above (9) Hyperlipidemia: * Stable -- last lipid profile in the last six months, no record in our system * Continue home simvastatin 40mg (10) Hypertension: * Bp stable 125/71 this morning, currently 110/80 * Not on any DAVE/ARB * continue metoprolol tartrate 25mg po bid * Continue to monitor (11) Sleep apnea: * pt did not bring home CPAP, unable to obtain at this time * Ordered for RT to set up our unit while inpatient -- patient using while inpatient (12) Hemangioma: * Found incidentally on imaging of neck in 2002 prior to cervical spine fusion in [place] -- surgery at the same * Stable (13) History of lumbar spinal fusion: * As above * h/o spinal surgeries x4, most recent 2018 (14) DVT prophylaxis: * SCDs as per primary team Dispo: from home, PT/OT. Poss discharge tomorrow per primary Thank you for allowing the medicine team to participate in the care of Mr. Sarmiento. Medicine will sign off. Please reach out with any questions/concerns. Supervising Physician Co-Signing Physician Notes PA Supervision Note: I did not personally see or examine the patient today, but I verified all nguyen points of GOYO Prieto's assessment and plan with the following exceptions/additions: None Subjective Patient evaluated this morning. Doing well. States he still has moderate amount of pain to lower back, no radiation of pain. Slightly worse than yesterday. Tolerable with prn pain medications as per primary. Confirms he is passing gas but has not had bowel movement yet. Hopeful for discharge home tomorrow after drainage slows and drain discontinued. Denies fevers, chills, chest pain, shortness of breath, n/v/d/c abdominal pain, dysuria or urgency/frequency. Review of Systems Review of Systems: All systems reviewed & are unremarkable except as noted in HPI & below Physical Exam Constitutional: WD/WN, vitals as above no acute distress Eyes: PERRL, conjunctivae normal, anicteric sclerae ENMT: external ear and nose normal, oropharynx normal Neck: trachea midline, no thyromegaly Respiratory: normal respiratory effort, lungs clear to auscultation Cardiovascular: RRR, no murmur, no edema Gastrointestinal (Abdomen): normal bowel sounds, soft, nontender, no hepatosplenomegaly Musculoskeletal: Head/Neck/Chest: normocephalic and head atraumatic Skin: no rashes, warm and dry JORGE LUIS drain in place, bloody drainage. Dressing to site c/d/i Neurologic: deep tendon reflexes 2+ bilaterally, moves all extremities and awake Speech / Cognition: normal speech Psychiatric: A+Ox3, euthymic affect Results & Data Vital Signs (Past 12 Hours) Vital Signs Temp Pulse Resp BP BP Pulse Ox 02/27/19 15:02 36.7 C 87 16 110/80 95 02/27/19 14:18 36.7 C 87 16 116/75 95 02/27/19 06:33 36.7 C 89 18 125/71 96 Laboratory Results 02/27/19 02/27/19 Range/Units 06:36 06:36 WBC 13.27 H (4.8-10.8) K/uL RBC 3.19 L (4.7-6.1) M/uL Hgb 10.9 L (14.0-18.0) g/dL Hct 32.4 L (42-52) % MCV 101.6 H (80-100) fL MCH 34.2 H (25-34) pg MCHC 33.6 (32-36) g/dL RDW Std Deviation 53.9 H (36.4-46.3) fL RDW Coeff of Alexandra 14.7 H (11.5-14.5) % Plt Count 226 (130-400) K/uL MPV 10.1 (7.4-10.4) fL Absolute Nucleated RBC 0.03 H (0-0) K/uL Nucleated RBC % (auto) 0.2 % Sodium 137 (136-145) mmol/L Potassium 3.7 D (3.5-5.1) mmol/L Chloride 103 (98-107) mmol/L Carbon Dioxide 32 (21-32) mmol/L Anion Gap 3.0 (3-11) BUN 13 (7-18) mg/dl Creatinine 0.91 (0.6-1.4) mg/dl Est Cr Clr Drug Dosing 88.7 ml/min Est GFR ( Amer) 101.4 Est GFR (Non-Af Amer) 87.5 BUN/Creatinine Ratio 14.5 (10-20) Glucose 111 H (70-99) mg/dl Calcium 8.6 (8.5-10.1) mg/dl PG Care Time/CCT Total # of Minutes Spent Total Time Spent with Patient: Total time spent is greater than 50% in coordination of care (as documented) at patient's floor/unit and/or counseling patient:
[2019-02-27] MEDS: SIMVASTATIN 40 MG TAB PO SCH (21:53)
[2019-02-27] MEDS: DOCUSATE SODIUM/SENNA 50/8.6MG TAB PO SCH (21:53)
[2019-02-28] MEDS: POLYETHYLENE (MIRALAX) 17 GM PACK PO SCH ×2 (05:56)
[2019-02-28 06:49] LABS: Hematocrit (blood only) 30.9 % (42-52); Hemoglobin 10.3 g/dL (14.0-18.0); Mean Corpuscular Hemoglobin 33.6 pg (25-34); Mean Corpuscular Hgb Conc 33.3 g/dL (32-36); Mean Corpuscular Volume 100.7 fL (80-100); Mean Platelet Volume 10.3 fL (7.4-10.4); Nucleated RBC # (auto) 0.04 K/uL (0-0); Nucleated RBC % (auto) 0.4 %; Platelet Count 226 K/uL (130-400); RDW Coefficient of Variation 14.4 % (11.5-14.5); RDW Standard Deviation 52.9 fL (36.4-46.3); Red Blood Count 3.07 M/uL (4.7-6.1); White Blood Count 11.14 K/uL (4.8-10.8)
[2019-02-28 07:24] LABS: BUN Creatinine Ratio 15.5 (10-20); Calcium 8.4 mg/dl (8.5-10.1); Creatinine Clr Calc Pharmacy 92.8 ml/min; Est GFR (African American) 104.2; Est GFR (Non-African American) 89.9; Potassium 3.9 mmol/L (3.5-5.1)
[2019-02-28] MEDS: PREGABALIN 50 MG CAP PO SCH (08:47)
[2019-02-28] MEDS: TRAMADOL HCL 50 MG TABLET PO PRN (08:47)
[2019-02-28] MEDS: METOPROLOL TARTRATE 25 MG TAB PO SCH (08:48)
[2019-02-28] MEDS: VITAMIN B COMPLEX TAB PO SCH (08:48)
[2019-02-28] MEDS: FERROUS SULFATE 325 MG TAB PO SCH (08:48)
[2019-02-28] MEDS: DULOXETINE HCL 60 MG CAP PO SCH (08:48)
[2019-02-28] MEDS: CHOLECALCIFEROL 1,000 UNITS TAB PO SCH (08:50)
[2019-02-28] MEDS: methylPREDNISolone 4 MG TAB PO SCH (08:50)
--- NOTE | 2019-02-28 09:41 | Discharge Summary ---
Date of Service February 28, 2019 Admission HPI Per Admitting Provider This is a 68-year-old male who presents with chronic persistent back and bilateral leg pain. After failing extensive course of nonoperative care is here for surgical invention. Principal Diagnosis Lumbar spinal stenosis with neurogenic claudication Discharge Data Allergies Allergy/AdvReac Type Severity Reaction Status Date / Time adhesive Allergy Unknown REDNESS, Verified 02/25/19 08:53 CHAKRABORTY SKIN latex Allergy Unknown CHAKRABORTY SKIN Verified 02/25/19 08:53 Consultations 02/25/19 13:18 Consult Case Management - Discharge Planning Routine Consult Hospitalist Routine Procedures Performed Operation Date: 02/25/19 09:35 Actual Procedures p L1-L2 Decompression with T11-L3 Fusion, L2-L3 Hardware Removal with Spinal Cord Monitoring, Application of Bone Morphogenetic Protein(Not Applicable) - Sedrick Bryan DO Ordered Studies 02/25/19 09:35 FL fluoroscopy <1hr Routine FL lumbar spine 2-3V Routine Hospital Course (1) Neurogenic claudication due to lumbar spinal stenosis: Patient underwent multilevel lumbar decompression fusion tolerated as well as taken to orthopedic for postoperative. Postop day 1 he was up and ambulating leg symptoms improved he progressed to postop day 2 and 3 on postop day #4 his bowels working well. JORGE LUIS drain decreasing subsequently discharged home. Discharge orders instructions from the chart for further review. Total Time Total Time Spent Total Time Spent (In Minutes): 20 minutes Discharge Plan Discharge Items Patient Disposition: Home - Self-Care Reason For Visit: LUMBAR SPINAL STENOSIS W/O NEUROGENIC CLAUDICATION Discharge Diagnosis: Lumbar spinal stenosis with neurogenic claudication Activity: As commented below Non-emergency contact: Primary Care Provider Call non-emergency contact if: you have any medication questions Follow-up/Referrals: Marc Vaz DO [Primary Care Provider] - Diet: Regular Addtl Attending Provider Instructions: ACTIVITY RECOMMENDATIONS: SELF CARE INSTRUCTIONS AFTER THORACIC/LUMBAR FUSIONS 1. You may walk to your tolerance. It is good exercise for your legs and back. Expect some back and intermittent leg aches and pains. 2. You may perform "counter-top" level activities (make a sandwich, david with a project, etc.). 3. No bending or lifting of more than 10 pounds or back twisting of any nature (roll like a log when turning in bed). 4. You may ride in a car for 20-30 minutes at a time. No driving until after your first visit with your doctor. 5. Frequent changes of position and restricting sitting to 30 minutes at a time will help limit the amount of back spasms and stiffness you may experience. 6. You may discontinue the use of ambulatory aids (cane, crutches, etc.) once your strength and confidence allow. 7. You may senior director insight the shower and let water strike your incision when you arrive home at least once daily. Do not take a tub bath, sit in a hot tub or go into a swimming pool until after your first recheck in the office. SPECIAL CARE INSTRUCTIONS: VERY IMPORTANT TO READ AND REVIEW A. Your surgical incision has been closed with a cosmetic suture under the skin that will dissolve in about 6 weeks. In 14 days, you can use a pair of clean scissors and cut the suture that is left outside of the skin at the ends of your incision. 1. The small skin tapes can be removed 7 days after surgery if they have not fallen off by that point. 2. You may keep the wound open to air as much as possible to promote healing after post-op day number 5 unless told otherwise by your doctor. 3. If you think the wound looks like it is becoming infected (redness or worsening drainage) and/or you are experiencing fever, chill or worsening back pain and muscle spasms, contact the office so that we may evaluate you as soon as possible. B. Complications are uncommon, but please contact us if you have any signs or symptoms of: 1. wound infection (fever higher than 102.5 degrees F, redness, separation of wound, drainage, or increasing pain from the incision) 2. blood clots in legs (pain, swelling, redness and warmth in legs) 3. urinary tract infection (fever higher than 102.5 degrees F, burning upon urination or increased frequency of urination) 4. nerve problems (inability to walk on your toes or heels, numbness, loss of bowel or bladder control) 5. any other symptoms that concern you C. Please call the office at if you have any concerns or questions about your operation or recovery. D. No smoking! Smoking drastically decreases the chance of a solid fusion. E. Do not take any anti-inflammatory medications (Indocin, Advil, Motrin, Aspirin, Naprosyn, etc.) as these may inhibit the chance of a solid fusion. Tylenol is okay to take for pain. MANAGING PAIN AFTER SPINAL SURGERY 1. Narcotic medication is intended for short-term use and will be provided for surgical pain. Surgical pain usually lasts for a period of 4-6 weeks. Narcotic medication includes Percocet, Vicodin, Darvocet, Tylenol #3 or Lortab. 2. Longer-term pain is more appropriately treated with non-narcotic medication such as Tylenol ES. 3. Muscle spasm is not appropriately treated with narcotics. Muscle relaxers such as Soma, Flexeril or Skelaxin can be used along with Tylenol ES. 4. Remember that we all live with some "aches and pains". This is not unusual or uncommon after an injury or as we get older. a. Back pain is expected and may include muscle spasms for 4 to 6 weeks after surgery. The pain should gradually improve. If the pain worsens for no apparent reason, please contact the office. b. Intermittent leg pain may also be experienced and should not be concerned about unless it worsens for no apparent reason. If so, please contact the office. 5. We will provide appropriate medication within the normal guidelines of their prescribed use. We will also be very cautious and aware of potential abuse and extended duration of patients' medication needs. a. Pain medications are for your comfort and to assist with sleep and rest so that the tissue can heal. They are not provided in order to return to normal activity and should not be used through the day. To do so or worsening pain at night can result from ongoing tissue damage and development of tolerance to the prescribed medicine. 6. Please allow 2-3 days to process refills. Prescriptions will not be mailed but must be picked up at the office. FOLLOW UP VISIT: Keep your scheduled follow-up appointment. Any questions, please call the office at . Pending Studies at Discharge: No Stand-Alone Forms: My [employer], Smoking Cessation Medications and DC Order Prescriptions: New tramadol 50 mg tablet 50 mg PO Q6H PRN (Reason: pain, moderate) Qty: 30 RF: 0 oxycodone 5 mg tablet 5 mg PO Q6H PRN (Reason: pain, severe) Qty: 30 RF: 0 Continued ibuprofen 200 mg Capsule 200 mg PO BID RF: 0 methylprednisolone 4 mg Tablet 4 mg PO QAM RF: 0 clopidogrel [Plavix] 75 mg Tablet 75 mg PO DAILY RF: 0 tramadol 50 mg Tablet 50 mg PO TID RF: 0 simvastatin 40 mg Tablet 40 mg PO HS RF: 0 saw palmetto 500 mg Capsule 450 mg PO QPM RF: 0 vitamin B complex Capsule 1 cap PO QAM RF: 0 iron 18 mg Tablet 28 mg PO QAM RF: 0 metoprolol tartrate 25 mg Tablet 25 mg PO BID RF: 0 duloxetine 60 mg Capsule,Delayed Release(Dr/Ec) 60 mg PO BID RF: 0 pregabalin 100 mg Capsule 50 mg PO QAM RF: 0 cholecalciferol (vitamin D3) [Vitamin D3] 1,000 unit Tablet,Chewable 1,000 unit PO QAM RF: 0 omega 4-mwk-lma-fish oil [Fish Oil] 1,000 mg (120 mg-180 mg) Capsule 1 cap PO QPM RF: 0 Super Beta Prostate 1 tab PO BID RF: 0 Discharge Orders: Discharge Order (Routine); Ordered 02/28/19 Ordered By: Sedrick Bryan Admission Data Admit Date/Time: 02/25/19 12:03 Attending Provider: Sedrick Bryan Admit Provider: Sedrick Bryan Primary Care Provider: Marc Vaz Other Providers: Cari Mcgraw
[2019-02-28] MEDS: OXYCODONE HCL IR 5 MG TAB (IMMEDIATE RELEASE) PO PRN (10:49)
== END 2019-02-28 11:00 | disposition home or self-care (01) | DRG 460 ==
LOC: ASU 08:29 → 3N 12:03